=== PATIENT | male | born 1950 | race Caucasian/White ===

== ENCOUNTER → 2017-11-30 09:09 | Outpatient (CLI) | payer MEDICARE, SELFPAY ==
[2017-11-30 11:48] LABS: Prostate Specific Antigen < 0.064 ng/mL (0.10-4.00)
== END ==
PROVIDERS: PCP Internal Medicine; Visit Provider Urology
DX: Z85.46 Personal history of malignant neoplasm of prostate (principal)
CPT/HCPCS: 36415; 84153

== ENCOUNTER → 2018-01-04 07:35 | Outpatient (CLI) | payer MEDICARE, SELFPAY ==
[2018-01-04 10:04] LABS: Alanine Aminotransferase 36 IU/L (21-72); Albumin 4.4 g/dL (3.5-5.0); Albumin Globulin Ratio 1.5 (1.0-2.8); Alkaline Phosphatase 64 U/L (38-126); Aspartate Aminotransferase 28 IU/L (17-59); BUN Creatinine Ratio 23.8 (6-22); Bilirubin Total 0.8 mg/dL (0.2-1.3); Blood Urea Nitrogen 19 mg/dL (9-20); Calcium 9.7 mg/dL (8.4-10.2); Carbon Dioxide 29 mmol/L (22-32); Chloride 101 mmol/L (98-107); Cholesterol 158 mg/dL (140-199); Estimated Glomerular Filt Rate > 60.0 mL/min (>60); Globulin 2.9 g/dL (1.7-4.1); Glucose 88 mg/dL (80-110); HDL Cholesterol 101 mg/dL (40-60); HEMOLYSIS < 15 (0-50); LDL Cholesterol Calculated 41 mg/dL (<100); Potassium 4.2 mmol/L (3.4-5.1); Sodium 142 mmol/L (137-145); Total Protein 7.3 g/dL (6.3-8.2); Triglycerides 79 mg/dL (35-150)
== END ==
PROVIDERS: Family Provider Internal Medicine; PCP Internal Medicine; Visit Provider Internal Medicine
DX: G25.0 Essential tremor (principal); J30.9 Allergic rhinitis, unspecified; G47.33 Obstructive sleep apnea (adult) (pediatric)
CPT/HCPCS: 36415; 80053; 80061

== ENCOUNTER → 2018-06-07 09:09 | Outpatient (CLI) | payer MEDICARE, SELFPAY ==
[2018-06-07 11:04] LABS: Prostate Specific Antigen < 0.064 ng/mL (0.10-4.00)
== END ==
PROVIDERS: Family Provider Internal Medicine; PCP Internal Medicine; Visit Provider Urology
DX: Z85.46 Personal history of malignant neoplasm of prostate (principal)
CPT/HCPCS: 36415; 84153

== ENCOUNTER → 2018-09-16 08:58 | Outpatient (CLI) | payer MEDICARE, SELFPAY ==
[2018-09-16 09:04] LABS: Bacteria Urine None Seen
[2018-09-16 10:15] LABS: Appearance Urine UA CLEAR; Bilirubin Urine UA NEGATIVE (NEGATIVE); Color Urine UA YELLOW; Glucose Urine UA NEGATIVE (Negative); Ketones Urine UA 2+ (NEGATIVE); Leukocyte Esterase Urine UA NEGATIVE (NEGATIVE); Nitrite Urine UA NEGATIVE (Negative); Occult Blood Urine UA 1+ (Negative); Protein Urine UA NEGATIVE (Negative); Urobilinogen Urine UA 0.2 E.U./dL (0.2)
[2018-09-16 10:44] LABS: BUN Creatinine Ratio 25.7 (6-22); Blood Urea Nitrogen 18 mg/dL (9-20); Calcium 9.8 mg/dL (8.4-10.2); Carbon Dioxide 28 mmol/L (22-32); Chloride 100 mmol/L (98-107); Estimated Glomerular Filt Rate > 60.0 mL/min (>60); Glucose 87 mg/dL (80-110); HEMOLYSIS < 15 (0-50); Potassium 5.2 mmol/L (3.4-5.1); Sodium 140 mmol/L (137-145)
[2018-09-16 10:55] LABS: Culture Indicated Urine Specimen Cultured; RBC Urine 5-10/HPF (0-5/HPF); WBC Urine 5-10/HPF (0-5/HPF)
== END ==
PROVIDERS: Family Provider Internal Medicine; PCP Internal Medicine; Visit Provider Urology
DX: R31.0 Gross hematuria (principal)
CPT/HCPCS: 36415; 80048; 81001; 87086

== ENCOUNTER → 2018-09-22 09:26 | Outpatient (CLI) | payer MEDICARE, SELFPAY ==
--- NOTE | 2018-09-22 | DI.CT.S_ITS ---
PROCEDURE: CT ABDOMEN PELVIS WO/W CON INDICATIONS: GROSS HEMATURIA TECHNIQUE: After the administration of oral contrast, 5 mm thick sections acquired from the diaphragms to the iliac crests. After the administration of intravenous contrast, 5 mm thick sections acquired from the diaphragms to the symphysis. 5 mm thick coronal and sagittal reformats were acquired. For radiation dose reduction, the following was used: automated exposure control, adjustment of mA and/or kV according to patient size. COMPARISON: None. FINDINGS: Image quality: Excellent. ABDOMEN: Lung bases: Lung bases are clear. Heart size is normal. Solid organs: Liver is normal in size and enhancement. Gallbladder is contracted. Biliary system is non-dilated. Pancreas enhances normally. Spleen is normal in size and enhancement. Calcified splenic granulomata. The No adrenal nodules. There is no hydronephrosis or mass involving either kidney. There is a 7 mm nonobstructing left lower pole renal stone. No right renal stones. Ureters are normal caliber. No ureteral stones. Bladder has a smooth contour. No bladder wall thickening. Bowel and peritoneum: Stomach, small and large bowel loops are normal in caliber and wall thickness. No free fluid or air. Sigmoid diverticulosis without evidence of diverticulitis. Nodes and vessels: No retroperitoneal or mesenteric adenopathy by size criteria. Aorta and inferior vena are normal in caliber. Miscellaneous: No ventral hernias. PELVIS: Genitourinary: Bladder wall thickness is normal. Miscellaneous: No inguinal hernias or adenopathy. Bones: No suspicious bony lesions. No vertebral body compression fractures. IMPRESSION: 1. 7 mm nonobstructing left lower pole renal stone. 2. No renal masses. No hydronephrosis. No ureteral stones. 3. Chronic granulomatous disease. 4. Sigmoid diverticulosis. Dictated by: Frankie Torres M.D. on 09/22/2018 at 15:29 Approved by: Frankie Torres M.D. on 09/22/2018 at 15:35
[2018-09-22 09:37] LABS: Bacteria Urine None Seen
[2018-09-22 10:17] LABS: Appearance Urine UA CLEAR; Bilirubin Urine UA NEGATIVE (NEGATIVE); Color Urine UA YELLOW; Glucose Urine UA NEGATIVE (Negative); Ketones Urine UA 1+ (NEGATIVE); Leukocyte Esterase Urine UA NEGATIVE (NEGATIVE); Nitrite Urine UA NEGATIVE (Negative); Occult Blood Urine UA 2+ (Negative); Protein Urine UA NEGATIVE (Negative); Specific Gravity Urine UA 1.015 (1.000-1.035); Urobilinogen Urine UA 0.2 E.U./dL (0.2); pH Urine UA 7.5 (4.5-8.0)
[2018-09-22 10:22] LABS: BUN Creatinine Ratio 18.8 (6-22); Blood Urea Nitrogen 15 mg/dL (9-20); Calcium 9.2 mg/dL (8.4-10.2); Carbon Dioxide 29 mmol/L (22-32); Chloride 98 mmol/L (98-107); Estimated Glomerular Filt Rate > 60.0 mL/min (>60); Glucose 95 mg/dL (80-110); HEMOLYSIS < 15 (0-50); Potassium 4.4 mmol/L (3.4-5.1); Sodium 138 mmol/L (137-145)
[2018-09-22 10:25] LABS: Amorphous Sediment Urine 1+; Culture Indicated Urine Specimen Cultured; Mucus Urine 1+ (Negative); RBC Urine 30-100/HPF (0-5/HPF); Squamous Epithelial Cell Urine 0-1 /HPF; WBC Urine 1-5/HPF (0-5/HPF)
== END ==
PROVIDERS: Family Provider Internal Medicine; PCP Internal Medicine; Visit Provider Urology
DX: R31.0 Gross hematuria (principal); N20.0 Calculus of kidney; K57.30 Diverticulosis of large intestine without perforation or abscess without bleeding
CPT/HCPCS: 36415; 74178; 80048; 81001; 87086; Q9967

== ENCOUNTER → 2018-11-22 09:32 | Outpatient (CLI) | payer MEDICARE, SELFPAY ==
--- NOTE | 2018-11-22 | DI.RAD.S_ITS ---
PROCEDURE: XR ABDOMEN 1V INDICATIONS: Calculus of left kidney TECHNIQUE: One view of the abdomen acquired. COMPARISON: [facility], CT, CT ABDOMEN PELVIS WO/W CON, 09/22/2018, 14:06. FINDINGS: Surgical changes and devices: None. Bowel: Bowel gas pattern is normal. Soft tissues: No new suspicious abdominal calcifications, and the calculus involving the left kidney laterally can be seen by plain film imaging center approximately 2 cm above the iliac crest on the left. This has a craniocaudad length of 1 cm.. Visualized solid organ contours appear normal in size. Bones: No suspicious bony lesions. IMPRESSION: The lateral left renal collecting system calculus seen by CT scanning 09/22/18 remains in stable position measuring up to 1.0 cm craniocaudad. Dictated by: Aman Delgado M.D. on 11/22/2018 at 10:10 Approved by: Aman Delgado M.D. on 11/22/2018 at 10:12
== END ==
PROVIDERS: Family Provider Internal Medicine; PCP Internal Medicine; Visit Provider Urology
DX: N20.0 Calculus of kidney (principal)
CPT/HCPCS: 74018

== ENCOUNTER → 2019-02-22 09:20 | Outpatient (CLI) | payer MEDICARE, SELFPAY ==
[2019-02-22 10:28] LABS: Alanine Aminotransferase 22 IU/L (21-72); Albumin 4.4 g/dL (3.5-5.0); Albumin Globulin Ratio 1.6 (1.0-2.8); Alkaline Phosphatase 62 U/L (38-126); Aspartate Aminotransferase 24 IU/L (17-59); BUN Creatinine Ratio 18.8 (6-22); Bilirubin Total 1.1 mg/dL (0.2-1.3); Blood Urea Nitrogen 15 mg/dL (9-20); Calcium 9.8 mg/dL (8.4-10.2); Carbon Dioxide 28 mmol/L (22-32); Chloride 99 mmol/L (98-107); Cholesterol 155 mg/dL (140-199); Estimated Glomerular Filt Rate > 60.0 mL/min (>60); Globulin 2.8 g/dL (1.7-4.1); Glucose 83 mg/dL (80-110); HDL Cholesterol 88 mg/dL (40-60); HEMOLYSIS < 15 (0-50); LDL Cholesterol Calculated 55 mg/dL (<100); Potassium 4.3 mmol/L (3.4-5.1); Sodium 137 mmol/L (137-145); Total Protein 7.2 g/dL (6.3-8.2); Triglycerides 59 mg/dL (35-150)
[2019-02-22 11:08] LABS: Prostate Specific Antigen < 0.064 ng/mL (0.10-4.00)
== END ==
PROVIDERS: PCP Internal Medicine; Visit Provider Internal Medicine
DX: C61 Malignant neoplasm of prostate (principal); G25.0 Essential tremor; Z13.1 Encounter for screening for diabetes mellitus; Z13.6 Encounter for screening for cardiovascular disorders
CPT/HCPCS: 36415; 80053; 80061; 84153

== ENCOUNTER → 2020-01-14 13:54 | Outpatient (CLI) | payer MEDICARE, SELFPAY ==
[2020-01-15 07:58] LABS: COVID19 Sendout Not Detected (Not Detect)
== END ==
PROVIDERS: PCP Internal Medicine; Visit Provider Nurse Practitioner
DX: Z01.812 Encounter for preprocedural laboratory examination (principal)
CPT/HCPCS: 87635

== ENCOUNTER 2020-01-17 08:00 | Day surgery (SDC) | payer MEDICARE, SELFPAY ==
[2020-01-17] MEDS: PROPARACAINE 0.5% OPHTH SOL 2 DROPS EYE-OP (08:33)
[2020-01-17 08:35] VITALS: BMI 35.9
[2020-01-17] MEDS: CATARACT EYE COMPOUND (10 DROPS/SYRINGE) 3 DROPS EYE-OP (08:38)
[2020-01-17 08:45] VITALS: BP 172/92; PULSE 61; RESP 14; TEMP 36.5; O2SAT 99
--- NOTE | 2020-01-17 09:39 | PM.PREOP ---
Pre-operative Note Interval Note History & Physical reviewed/Exam performed by Physician: Yes Changes to H&P: No
--- NOTE | 2020-01-17 09:40 | P.OP_ITS ---
Operative Date/Time/Diagnoses Pre-op diagnosis: Nuclear Cataract Left eye Post-op diagnosis: same Procedure & Clinicians Same procedure as scheduled: Yes Surgeon: Shekhar Conroy Anesthesia Type: MAC +/- and Sedation Operative Notes Procedure in detail: Patient brought to the operating suite. Tetracaine drops placed in the left eye. Patient was prepped and draped in sterile manner. Wire lid speculum was placed in the eye. Betadine drops were placed on the eye. This was irrigated. Lidocaine jelly was placed on the eye. A paracentesis port was created with a side-port blade. 0.1 mL 1% preservative free lidocaine was injected into the anterior chamber. The anterior chamber was deepened with viscoelastic. 2.6 mm keratome was used to create a temporal clear corneal incision. Cystotome and Utrata forceps were used to create continuous tear capsulorrhexis. Balanced salt solution was used to hydro dissect the nucleus. The phacoemulsification handpiece was inserted and the nucleus was removed using the stop and chop technique. The irrigation aspiration handpiece was inserted and the remaining cortex was removed. Anterior chamber was deepened with viscoe lastic. An Casanova ZCB00 intraocular lens with a power of 19.5 was injected into the capsular bag. Irrigation aspiration handpiece was inserted and the remaining viscoelastic was removed. Incision was hydrated with balanced salt solution and found to be leak free with pressure with Weck-Madyson sponges. 0.1 mL Vigamox injected anterior chamber. 0.3 mL Kenalog 10 mg was injected subconjunctivally. Lid speculum was removed. The patient left the operating room in excellent condition. Complications: none Post-operative Condition: stable Disposition: same day surgery
[2020-01-17] MEDS: CHONDROIDTIN/SOD HYALURONATE 1.05 ML SYRINGE INTRAOCULA (09:59)
[2020-01-17] MEDS: MOXIFLOXACIN INJ 5 MG/ML VIAL EYE-OP (09:59)
[2020-01-17] MEDS: TRIAMCINOLONE 50 MG/5 ML VIAL INJ (09:59)
[2020-01-17] MEDS: PHENYLEPHRINE/LIDOCAINE VIAL (OR) 0.2 ML EYE-OP (09:59)
[2020-01-17] MEDS: TETRACAINE 0.5% OPHTH DROPS 4 ML 2 DROPS EYE-OP (10:00)
[2020-01-17] MEDS: BALANCED SALT IRRIG SOLN NO.2 500 ML, EPINEPHrine 1 MG IRR (10:00)
[2020-01-17] MEDS: LIDOCAINE JELLY 2% 5 ML 1 APPLIC TOP (10:00)
[2020-01-17 10:09] VITALS: BP 172/93; PULSE 60; RESP 20; TEMP 36.6; O2SAT 98
== END 2020-01-17 10:22 | disposition home or self-care (01) ==
PROVIDERS: PCP Internal Medicine; Referring Provider Ophthalmology; Visit Provider Ophthalmology
PROC: (CPT 66984; principal; 2020-01-17 09:45)
DX: H25.12 Age-related nuclear cataract, left eye (principal)
CPT/HCPCS: 66984; J0171; J2250; J3010; J3301

== ENCOUNTER → 2020-01-28 15:56 | Outpatient (CLI) | payer MEDICARE, SELFPAY ==
[2020-01-29 23:43] LABS: COVID19 Sendout Not Detected (Not Detect)
== END ==
PROVIDERS: PCP Internal Medicine; Visit Provider Physician Assistant
DX: Z01.812 Encounter for preprocedural laboratory examination (principal)
CPT/HCPCS: 87635

== ENCOUNTER 2020-01-31 06:29 | Day surgery (SDC) | payer MEDICARE, SELFPAY ==
[2020-01-31] MEDS: PROPARACAINE 0.5% OPHTH SOL 2 DROPS EYE-OP (07:12)
[2020-01-31] MEDS: CATARACT EYE COMPOUND (10 DROPS/SYRINGE) 3 DROPS EYE-OP (07:12)
[2020-01-31 07:30] VITALS: BP 173/88; PULSE 66; RESP 16; TEMP 37.1; O2SAT 98; BMI 37.0
--- NOTE | 2020-01-31 07:33 | PM.PREOP ---
Pre-operative Note Interval Note History & Physical reviewed/Exam performed by Physician: Yes Changes to H&P: No
--- NOTE | 2020-01-31 07:33 | PM.OP.1 ---
Operative Date/Time/Diagnoses Pre-op diagnosis: Nuclear cataract right eye Procedure & Clinicians Procedure: Cataract Surgery Same procedure as scheduled: Yes Surgeon: Shekhar Conroy Anesthesia Type: MAC +/- and Sedation Operative Notes Procedure in detail: Patient brought to the operating suite. Tetracaine drops placed in the right eye. Patient was prepped and draped in sterile manner. Wire lid speculum was placed in the eye. Betadine drops were placed on the eye. This was irrigated. Lidocaine jelly was placed on the eye. A paracentesis port was created with a side-port blade. 0.1 mL 1% preservative free lidocaine was injected into the anterior chamber. The anterior chamber was deepened with viscoelastic. 2.6 mm keratome was used to create a temporal clear corneal incision. Cystotome and Utrata forceps were used to create continuous tear capsulorrhexis. Balanced salt solution was used to hydro dissect the nucleus. The phacoemulsification handpiece was inserted and the nucleus was removed using the stop and chop technique. The irrigation aspiration handpiece was inserted and the remaining cortex was removed. Anterior chamber was deepened with viscoelastic. An Casanova ZCB00 intraocular lens with a power of 18.0 was injected into the capsular bag. Irrigation aspiration handpiece was inserted and the remaining viscoelastic was removed. Incision was hydrated with balanced salt solution and found to be leak free with pressure with Weck-Madyson sponges. 0.1 mL Vigamox injected anterior chamber. 0.3 mL Kenalog 10 mg was injected subconjunctivally. Lid speculum was removed. The patient left the operating room in excellent condition. Complications: none Post-operative Condition: stable Disposition: same day surgery
[2020-01-31] MEDS: CHONDROIDTIN/SOD HYALURONATE 1.05 ML SYRINGE INTRAOCULA (08:03)
[2020-01-31] MEDS: LIDOCAINE JELLY 2% 5 ML 1 APPLIC TOP (08:04)
[2020-01-31] MEDS: MOXIFLOXACIN INJ 5 MG/ML VIAL EYE-OP (08:04)
[2020-01-31] MEDS: PHENYLEPHRINE/LIDOCAINE VIAL (OR) 0.2 ML EYE-OP (08:04)
[2020-01-31] MEDS: TETRACAINE 0.5% OPHTH DROPS 4 ML 2 DROPS EYE-OP (08:05)
[2020-01-31] MEDS: BALANCED SALT IRRIG SOLN NO.2 500 ML, EPINEPHrine 1 MG IRR (08:05)
[2020-01-31] MEDS: TRIAMCINOLONE 50 MG/5 ML VIAL INJ (08:05)
[2020-01-31 08:10] VITALS: BP 182/93; PULSE 66; RESP 16; TEMP 36.6; O2SAT 97
== END 2020-01-31 08:20 | disposition home or self-care (01) ==
PROVIDERS: PCP Internal Medicine; Referring Provider Internal Medicine; Visit Provider Ophthalmology
PROC: (CPT 66984; principal; 2020-01-31 07:45)
DX: H25.11 Age-related nuclear cataract, right eye (principal); R25.1 Tremor, unspecified
CPT/HCPCS: 66984; J0171; J2250; J3010; J3301

== ENCOUNTER → 2020-07-05 09:46 | Outpatient (CLI) | payer MEDICARE, SELFPAY ==
[2020-07-05 10:45] LABS: Prostate Specific Antigen < 0.064 ng/mL (0.10-4.00)
== END ==
PROVIDERS: PCP Internal Medicine; Referring Provider Specialist; Visit Provider Specialist
DX: R97.20 Elevated prostate specific antigen [PSA] (principal); C61 Malignant neoplasm of prostate; N39.3 Stress incontinence (female) (male); N52.31 Erectile dysfunction following radical prostatectomy
CPT/HCPCS: 36415; 81002; 84153; 99214

== ENCOUNTER → 2020-09-14 07:03 | Outpatient (CLI) | payer MEDICARE, SELFPAY ==
[2020-09-14 09:00] LABS: Alanine Aminotransferase 16 IU/L (<50); Albumin 4.1 g/dL (3.5-5.0); Albumin Globulin Ratio 1.4 (1.0-2.8); Alkaline Phosphatase 57 U/L (38-126); Aspartate Aminotransferase 25 IU/L (17-59); Bilirubin Total 0.7 mg/dL (0.2-1.3); Blood Urea Nitrogen 21 mg/dL (9-20); Calcium 9.3 mg/dL (8.4-10.2); Carbon Dioxide 29 mmol/L (22-32); Chloride 104 mmol/L (98-107); Cholesterol 162 mg/dL (140-199); Estimated Glomerular Filt Rate > 60.0 mL/min (>60); Globulin 2.9 g/dL (1.7-4.1); Glucose 98 mg/dL (80-110); HDL Cholesterol 83 mg/dL (40-60); HEMOLYSIS < 15 (0-50); LDL Cholesterol Calculated 67 mg/dL (<100); Sodium 139 mmol/L (137-145); Triglycerides 58 mg/dL (35-150)
[2020-09-14 09:30] LABS: TSH w/ Reflex to FT4 5.59 uIU/mL (0.47-4.68)
[2020-09-14 23:11] LABS: Free T4, Direct Thyroxine 0.98 ng/dL (0.78-2.19)
== END ==
PROVIDERS: PCP Internal Medicine; Referring Provider Internal Medicine; Visit Provider Internal Medicine
DX: G25.0 Essential tremor (principal); I10 Essential (primary) hypertension; Z13.220 Encounter for screening for lipoid disorders
CPT/HCPCS: 36415; 80053; 80061; 84439; 84443

== ENCOUNTER → 2021-02-07 09:24 | Outpatient (CLI) | payer MEDICARE, SELFPAY ==
[2021-02-07 11:56] LABS: COVID19 -Nasal RAPID Negative (Negative)
== END ==
PROVIDERS: PCP Internal Medicine; Visit Provider Specialist
DX: Z20.822 Contact with and (suspected) exposure to COVID-19 (principal)
CPT/HCPCS: 87635; C9803

== ENCOUNTER 2021-02-08 06:29 | Day surgery (SDC) | payer MEDICARE, SELFPAY ==
--- NOTE | 2021-02-08 | PATH_ITS ---
[facility] Accession Number: [id number] . 01 Material submitted: . PART A: colon - ASCENDING COLON PART B: body - 100 CM PART C: body - 85 CM . 01 Clinical history: . SDC . 02 Diagnosis: A. Ascending Colon: Portions of tubular adenoma x2. Superficial portion of colorectal mucosa x1 with a benign lymphoid aggregate. Superficial portion of colorectal mucosa x1 with no significant histomorphologic abnormality. . B. 100 cm: Portions of tubular adenoma x 6. Superficial portion of colorectal mucosa x1 with multiple benign lymphoid aggregates. Superficial portions of colorectal mucosa x2 with focal hyperplastic mucosal change. . C. 85 cm: Tubular adenoma. MRV 02/12/2021 1737 Local . 02 Electronically signed: . Lucy Erwin MD, Pathologist NPI- [id number] . 01 Gross description: . Part A: ASCENDING COLON: Received in formalin are 4 fragment(s) of raman, soft tissue measuring 0.5 x 0.3 x 0.3 cm to 0.2 x 0.1 x 0.1 cm submitted entirely in 1 cassette(s) Part B: 100 CM: Received in formalin are multiple fragment(s) of raman, soft tissue measuring 1.3 x 0.4 x 0.2 cm in aggregate submitted entirely in 1 cassette(s) Part C: 85 CM: Received in formalin are 4 fragment(s) of raman, soft tissue measuring 0.6 x 0.4 x 0.3 cm to 0.1 x 0.1 x 0.1 cm submitted entirely in 1 cassette(s) /TARA 02/09/2021 0707 Local . 02 Pathologist provided ICD-10: Z12.11, K63.5 . 02 CPT . 975439, [id number], [id number] Performed at: 01 [facility] [address] [place] [address], [place], [place] [id number] MD Gorge Tomlinson MD Phone: [phone] Performed at: 02 [facility] [address] [place], [place] [id number] MD Gela Ryan MD Phone: [phone]
[2021-02-08] MEDS: LACTATED RINGERS 1,000 ML 200 ML IV (07:16)
[2021-02-08 07:17] VITALS: BP 165/81; PULSE 59; RESP 16; TEMP 36.6; O2SAT 98; BMI 34.1
--- NOTE | 2021-02-08 07:37 | PM.HP.1 ---
History of Present Illness History of Present Illness Chief complaint: [facility] [place] Narrative: The patient is a gentleman who is here for screening colonoscopy. His last exam was about 10 or 11 years ago. No family history. Patient History Medical History Allergic rhinitis (06/24/12) Ankle pain (~1972) Diverticular disease Elevated PSA Erectile dysfunction after radical prostatectomy Essential hypertension Essential tremor (~1989) H/O renal calculi History of basal cell cancer (~2009) Malignant neoplasm of prostate (04/29/16) Obstructive sleep apnea syndrome (~2007) RIANA (stress urinary incontinence), male Surgical History Anesthesia Ankle fracture (~1971) H/O prostate biopsy History of open hand wound History of prostatectomy History of torn meniscus of left knee Status post radical cystoprostatectomy (~09/2015) Family & Social History Family History Brother Family history of prostate cancer Father Family history of prostate cancer Mental health problem Tremor Mother Stroke Tremor Sister Age: 77 Breast cancer Tremor Grandfather Dementia Family/Other Cancer Social History: household members spouse Tobacco & Substance use: Smoking Status Never smoker alcohol intake current alcohol intake frequency 3 or more drinks per day Substance Use Type does not use Meds Home Medications and Allergies Home Medications Medication Instructions Recorded Confirmed Type aspirin 81 mg tablet,delayed 81 mg PO QDAY #0 06/15/12 02/08/21 History release ascorbic acid (vitamin C) 500 mg 500 mg PO QDAY #0 06/24/12 02/08/21 History tablet fexofenadine 180 mg tablet 180 mg PO DAILY 01/08/18 02/08/21 History (Roberta Allergy) glucosamine HCl 1,500 mg tablet 1,500 mg PO DAILY 01/08/18 02/08/21 History lutein 20 mg capsule 20 - 100 mg PO DAILY 01/08/18 02/08/21 History sildenafil 50 mg tablet (Viagra) 50 mg PO DAILY PRN 01/08/18 02/08/21 History cholecalciferol (vitamin D3) 50 50 mcg PO DAILY 07/05/20 02/08/21 History mcg (2,000 unit) capsule multivitamin 1 tab PO DAILY 07/05/20 02/08/21 History vitamin E (dl, acetate) 400 unit 400 unit PO DAILY 07/05/20 02/08/21 History capsule lisinopril 20 mg tablet 20 mg PO DAILY #90 tab 08/17/20 02/08/21 Rx fluticasone propionate 50 2 spray INTRANASAL BEDTIME #16 gram 08/28/20 02/08/21 Rx mcg/actuation nasal spray,suspension tetrahydrozoline 0.05 % eye drops 1 drp EYE-BOTH DAILY ml 09/21/20 02/08/21 History sodium,potassium,mag sulfates 17.5 177 ml PO DAILY #354 ml 01/02/21 02/08/21 Rx gram-3.13 gram-1.6 gram oral soln Respironics DreamStation CPAP #1 ea 01/16/21 01/16/21 History Allergies Allergy/AdvReac Type Severity Reaction Status Date / Time No Known Drug Allergies Allergy Verified 02/08/21 07:09 Review of Systems Review of Systems Narrative: Uses a CPAP machine otherwise a 12 point review of systems is negative except for some urinary difficulties Exam Vital Signs (past 8 hours): - 02/08/21 07:17 Temperature 97.8 F Pulse Rate 59 L Respiratory Rate 16 Blood Pressure 165/81 H Pulse Oximetry 98 Oxygen Delivery Method Room Air Narrative Exam Narrative: Pleasant cooperative patient no apparent distress. Lungs are clear to auscultation. No rales or rhonchi. Heart regular rate and rhythm no murmur gallop. Abdomen is soft nontender without mass. No obvious hernias. Patient is alert and oriented x3. Assessment & Plan Assessment and plan (1) Screening for colon cancer: Status: Acute Assessment & Plan narrative: I have discussed the procedure and the rationale with the patient including risks of bleeding, perforation which would necessitate a major operation, failure to find remove all lesions and the potential to tattoo. They appeared to understand and wished to proceed.
--- NOTE | 2021-02-08 07:39 | PM.PREOP ---
Pre-operative Note COVID-19 COVID-19 status: Negative Result date/Date tested (Pos, Neg/Pending): 02/07/21 Interval Note History & Physical reviewed/Exam performed by Physician: Yes Changes to H&P: No ASA Class (for procedural sedation): III
[2021-02-08] MEDS: MIDAZOLAM 5 MG/5 ML VIAL IV (08:00)
[2021-02-08] MEDS: fentaNYL 250 MCG/5 ML INJ IV (08:00)
--- NOTE | 2021-02-08 08:21 | PM.OP.ENDO ---
Operative Date/Time/Diagnoses Date of procedure: 02/08/21 Time of procedure: 08:21 Pre-op diagnosis: Screening exam. Last exam about 11 years ago. Post-op diagnosis: same (Multiple polyps. Manzo colonic diverticulosis.) Procedure & Clinicians Study performed: Colonoscopy with cold biopsy and hot snare polypectomy. Indications: Screening for colon cancer Surgeon: Brian Brooks Procedure Notes SCOAP/Timeout: Performed Procedure in detail: The patient was placed in the left lateral decubitus position and underwent IV sedation directed by the surgeon consisting of fentanyl and Versed. Digital exam was remarkable for an absent prostate. Also felt as though there were internal hemorrhoids but no thrombosis. There were no palpable masses. The scope was inserted and advanced through the rectum into the sigmoid, descending, transverse, and ascending colon. Diverticuli were seen throughout the colon.. The cecum was reached identified by the ileocecal valve and the appendiceal opening. The scope was gradually brought out. Polyps were found at the ascending colon, 100 cm from the anal verge, and 85 cm from the anal verge. The lesion at the ascending colon and at 100 cm were removed with cold biopsy forceps. The lesion at 85 cm was removed with a hot snare and a small polyp adjacent to it was cauterized.. The scope ultimately was retroflexed in the rectum. The appearance was remarkable for internal hemorrhoids without ulceration.. The scope was removed and the patient tolerated the procedure well. Scope withdrawal time: 9 min (18 total) Sedation minutes: 31 Findings: diverticulosis and polyp Specimen(s): other (Polyps) Complications: none Post-procedure Recommendations: Colonscopy in 5 years Follow up: as needed Disposition: PACU
[2021-02-08 08:27] VITALS: BP 153/79; PULSE 59; RESP 16; TEMP 36.5
[2021-02-08 08:32] VITALS: BP 138/76; PULSE 56; RESP 16
[2021-02-08 08:37] VITALS: BP 132/76; PULSE 54; RESP 16; O2SAT 95
[2021-02-08 08:40] VITALS: BP 138/76; PULSE 59; RESP 16; TEMP 36.2; O2SAT 96
[2021-02-08 08:48] VITALS: BP 130/70; PULSE 60; RESP 16; TEMP 36.4; O2SAT 96
== END 2021-02-08 09:01 | disposition home or self-care (01) ==
PROVIDERS: PCP Internal Medicine; Referring Provider Specialist; Visit Provider Specialist
PROC: 0DJD8ZZ Inspection of Lower Intestinal Tract, Via Natural or Artificial Opening Endoscopic (ICD-10-PCS; CPT 45378; principal; 2021-02-08 07:45)
DX: Z12.11 Encounter for screening for malignant neoplasm of colon (principal); I10 Essential (primary) hypertension; G47.33 Obstructive sleep apnea (adult) (pediatric); K57.30 Diverticulosis of large intestine without perforation or abscess without bleeding; D12.2 Benign neoplasm of ascending colon; D12.6 Benign neoplasm of colon, unspecified
CPT/HCPCS: 45385; 45380; 99152; 99153; J2250; J3010

== ENCOUNTER → 2021-07-24 11:58 | Outpatient (CLI) | payer MEDICARE, SELFPAY ==
[2021-07-24 14:25] LABS: Prostate Specific Antigen < 0.064 ng/mL (0.10-4.00)
== END ==
PROVIDERS: PCP Internal Medicine; Referring Provider Specialist; Visit Provider Specialist
DX: R97.20 Elevated prostate specific antigen [PSA] (principal)
CPT/HCPCS: 36415; 84153

== ENCOUNTER → 2021-12-12 09:45 | Outpatient (CLI) | payer MEDICARE, SELFPAY ==
[2021-12-12 11:38] LABS: Alanine Aminotransferase 15 IU/L (<50); Albumin 4.4 g/dL (3.5-5.0); Albumin Globulin Ratio 1.6 (1.0-2.8); Alkaline Phosphatase 46 U/L (38-126); Aspartate Aminotransferase 24 IU/L (17-59); BUN Creatinine Ratio 22.7 (6-22); Bilirubin Total 0.9 mg/dL (0.2-1.3); Blood Urea Nitrogen 17 mg/dL (9-20); Calcium 9.3 mg/dL (8.4-10.2); Carbon Dioxide 29 mmol/L (22-32); Chloride 103 mmol/L (98-107); Estimated Glomerular Filt Rate > 60 mL/min (>60); Globulin 2.7 g/dL (1.7-4.1); Glucose 90 mg/dL (80-110); HEMOLYSIS < 15 (0-50); Potassium 4.5 mmol/L (3.4-5.1); Sodium 137 mmol/L (137-145); Total Protein 7.1 g/dL (6.3-8.2)
== END ==
PROVIDERS: PCP Internal Medicine; Referring Provider Internal Medicine; Visit Provider Internal Medicine
DX: I10 Essential (primary) hypertension (principal)
CPT/HCPCS: 36415; 80053

== ENCOUNTER → 2022-09-29 11:26 | Outpatient (CLI) | payer MEDICARE, SELFPAY ==
[2022-09-29 13:28] LABS: BUN Creatinine Ratio 22.9 (6-22); Blood Urea Nitrogen 16 mg/dL (9-20); Calcium 8.9 mg/dL (8.4-10.2); Carbon Dioxide 30 mmol/L (22-32); Chloride 100 mmol/L (98-107); Estimated Glomerular Filt Rate > 60 mL/min (>60); Glucose 84 mg/dL (80-110); HEMOLYSIS < 15 (0-50); Potassium 4.2 mmol/L (3.4-5.1); Sodium 137 mmol/L (137-145)
[2022-09-29 14:01] LABS: Prostate Specific Antigen < 0.064 ng/mL (0.10-4.00)
== END ==
PROVIDERS: PCP Internal Medicine; Referring Provider Internal Medicine; Visit Provider Internal Medicine
DX: C61 Malignant neoplasm of prostate (principal); I10 Essential (primary) hypertension
CPT/HCPCS: 36415; 80048; 84153

== ENCOUNTER → 2022-11-12 08:44 | Outpatient (CLI) | payer MEDICARE, SELFPAY ==
--- NOTE | 2022-11-12 08:46 | DI.RAD.S_ITS ---
PROCEDURE: XR CHEST 2V INDICATIONS: cough TECHNIQUE: 2 views of the chest were acquired. COMPARISON: [facility], CHEST 2 VIEW, 12/01/2016, 14:37. [facility], CHEST 1 VIEW, 10/14/2007, 12:51. FINDINGS: Surgical changes and devices: None. Lungs and pleura: Lungs are clear. No pleural effusions or pneumothorax. Mediastinum: Mediastinal contours are normal. Heart size is normal. Bones and chest wall: No suspicious bony abnormalities. Soft tissues appear unremarkable. IMPRESSION: No acute cardiopulmonary process. Dictated by: Berto Small M.D. on 11/12/2022 at 11:52 Approved by: Berto Small M.D. on 11/12/2022 at 11:52
== END ==
PROVIDERS: PCP Internal Medicine; Referring Provider Internal Medicine; Visit Provider Internal Medicine
DX: R05.9 Cough, unspecified (principal)
CPT/HCPCS: 71046

== ENCOUNTER → 2024-02-18 08:06 | Outpatient (CLI) | payer MEDICARE, OTHER, SELFPAY ==
[2024-02-18 09:03] LABS: Alanine Aminotransferase 19 IU/L (<50); Albumin 4.4 g/dL (3.5-5.0); Albumin Globulin Ratio 1.5 (1.0-2.8); Alkaline Phosphatase 57 U/L (38-126); Aspartate Aminotransferase 23 IU/L (17-59); BUN Creatinine Ratio 18.7 (6-22); Bilirubin Total 0.8 mg/dL (0.2-1.3); Blood Urea Nitrogen 14 mg/dL (9-20); Calcium 9.1 mg/dL (8.4-10.2); Carbon Dioxide 28 mmol/L (22-32); Chloride 105 mmol/L (98-107); Cholesterol 160 mg/dL (140-199); Estimated Glomerular Filt Rate > 60 mL/min (>60); Globulin 2.9 g/dL (1.7-4.1); Glucose 100 mg/dL (80-110); HDL Cholesterol 82 mg/dL (40-60); HEMOLYSIS < 15 (0-50); LDL Cholesterol Calculated 62 mg/dL (<100); Potassium 4.3 mmol/L (3.4-5.1); Sodium 139 mmol/L (137-145); Total Protein 7.3 g/dL (6.3-8.2); Triglycerides 80 mg/dL (35-150)
[2024-02-19 07:10] LABS: PSA Ultrasensitive <0.006 ng/mL (0.000-4.000)
== END ==
PROVIDERS: PCP Internal Medicine; Referring Provider Internal Medicine; Visit Provider Internal Medicine
DX: I10 Essential (primary) hypertension (principal); C61 Malignant neoplasm of prostate; G25.0 Essential tremor
CPT/HCPCS: 36415; 80053; 80061; 84153; 84443

== ENCOUNTER → 2024-03-08 08:13 | Outpatient (CLI) | payer MEDICARE, OTHER, SELFPAY | PROVIDERS: PCP Internal Medicine; Referring Provider Physician Assistant Medical; Visit Provider Physician Assistant Medical | DX: S80.869A Insect bite (nonvenomous), unspecified lower leg, initial encounter (principal); W57.XXXA Bitten or stung by nonvenomous insect and other nonvenomous arthropods, initial encounter | CPT/HCPCS: 87070; 87205 ==

== ENCOUNTER 2024-03-10 08:22 | Emergency (ER) | payer MEDICARE, OTHER, SELFPAY ==
[2024-03-10 08:25] VITALS: BP 155/84; PULSE 97; RESP 16; O2SAT 99; BMI 33.3
--- NOTE | 2024-03-10 08:35 | ED.SKABFB ---
HPI - Skin/Abscess/Foreign Bdy General Chief complaint: Skin/Abscess/Foreign Body Stated complaint: bee sting getting worse Time Seen by Provider: 03/10/24 08:25 History of Present Illness HPI narrative: Patient 73-year-old male history of hypertension presenting today with right leg redness. Reports that 4 days ago he got stung by a bee while he was standing in water. He was able to remove the stinger he was applying antibiotic ointment. He did not have any other hives or reaction no difficulty breathing. He was then seen at the walk-in clinic 2 days later and started on doxycycline. Apparently a wound culture was sent which actually does not show any growth. He is here today because he feels like it is worse. He has not had any fever chills no redness foot is still mildly swollen. Difficulty breathing. Related Data Home Medications Medication Instructions Recorded Confirmed ascorbic acid (vitamin C) 500 mg 500 mg PO QDAY ##0 06/24/12 03/08/24 tablet fexofenadine 180 mg tablet 180 mg PO DAILY 01/08/18 03/08/24 (Roberta Allergy) lutein 20 mg capsule 20 - 100 mg PO DAILY 01/08/18 03/08/24 cholecalciferol (vitamin D3) 50 50 mcg PO DAILY 07/05/20 03/08/24 mcg (2,000 unit) capsule multivitamin 1 tab PO DAILY 07/05/20 03/08/24 tetrahydrozoline 0.05 % eye drops 1 drp EYE-BOTH DAILY 09/21/20 03/08/24 Respironics DreamStation 2 09/17/21 03/08/24 glucosamine HCl 1,500 mg tablet 1,500 mg PO TID 02/09/24 03/08/24 Previous Rx's Medication Instructions Recorded lisinopril 20 mg tablet 20 mg PO DAILY #90 tabs 10/16/23 fluticasone propionate 50 2 spray intranasal BEDTIME #32 12/28/23 mcg/actuation nasal grams spray,suspension doxycycline hyclate 100 mg capsule 100 mg PO BID #14 caps 03/08/24 prednisone 20 mg tablet 20 mg PO DAILY #5 tabs 03/10/24 Allergies Allergy/AdvReac Type Severity Reaction Status Date / Time No Known Drug Allergies Allergy Verified 03/08/24 08:08 Patient History Medical History History of malignant neoplasm of prostate Obesity (BMI 30-39.9) 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 Essential hypertension Erectile dysfunction after radical prostatectomy RIANA (stress urinary incontinence), male H/O renal calculi Elevated PSA Diverticular disease Ankle pain (~1972) History of basal cell cancer (~2009) Malignant neoplasm of prostate (04/29/16) Allergic rhinitis (06/24/12) Essential tremor (~1989) Obstructive sleep apnea syndrome (~2007) Surgical History History of prostatectomy H/O prostate biopsy Anesthesia History of torn meniscus of left knee History of open hand wound Ankle fracture (~1971) Status post radical cystoprostatectomy (~09/2015) Family History Brother Family history of prostate cancer Father Family history of prostate cancer Mental health problem Tremor Mother Stroke Tremor Sister Age: 80 Breast cancer Tremor Grandfather Dementia Family/Other Cancer Social History marital status: household members: spouse occupational status: previously employed Smoking Status: Never smoker alcohol intake: current caffeine: Yes Smoking Status: Never smoker alcohol intake frequency: 3 or more drinks per day Substance Use Type: does not use Exam Initial Vital Signs Initial Vital Signs: GENERAL: Alert pleasant 73-year-old male CARDIOVASCULAR: peripheral pulses in tact, cap refill <2 sec RESPIRATORY: No respiratory distress, speaks in full sentences without difficulty EXTREMITIES: Normal range of motion, no clubbing or edema. Neurovascularly intact NEUROLOGICAL: Cranial nerves II through XII grossly intact. Normal gait and speech. SKIN: Right medial lower leg over the malleoli is some discoloration some very mild erythema some blanchable about 11 cm x 8 cm but very mild no fluctuation. No streaking non circumferential MDM - Skin/Abscess/Foreign Bdy MDM Narrative Medical decision making narrative: Patient well-appearing 73-year-old male presents today with ongoing erythema after bee sting. He is afebrile it is very mildly discolored slightly red no streaking. He is already taking doxycycline wound culture is negative. He has only really had 4 doses of doxycycline. At this time I recommend he continue doxycycline will add prednisone. Given him strict return precautions. Overall appears well nontoxic not septic Discharge Plan Departure Patient Disposition: Home Clinical Impression: Cellulitis, Bee sting reaction Instructions: Insect Bites and Stings Activity Restrictions/Additional Instructions: *You have been diagnosed with bee sting mild infection *What to do: At this time keep taking your antibiotic. I think it will start working. Elevate and ice as often as possible help with the swelling. *Continue to take medications as directed Prednisone 20 mg once a day for 5 days *Follow up with your primary care provider in 2-3 days or call [phone] *Return to ER if you should have increasing redness streaking fever significant pain or any new, worsening or concerning symptoms Prescriptions: New prednisone 20 mg tablet 20 mg PO DAILY Qty: 5 0RF No Action doxycycline hyclate 100 mg capsule 100 mg PO BID Qty: 14 0RF ascorbic acid (vitamin C) 500 MG tablet 500 mg PO QDAY Qty: 0 lisinopril 20 mg tablet 20 mg PO DAILY Qty: 90 3RF fluticasone propionate 50 mcg/actuation spray,suspension 2 spray Intranasal BEDTIME Qty: 32 3RF fexofenadine [Roberta Allergy] 180 mg tablet 180 mg PO DAILY lutein 20 mg capsule 20 - 100 mg PO DAILY glucosamine HCl 1,500 mg tablet 1,500 mg PO TID tetrahydrozoline 0.05 % drops 1 drp EYE-BOTH DAILY (DME) Respironics DreamStation 2 See Rx Instructions .Route .MEDSUPPLY Rx Instructions: CPAP Min: 8 Max: 12 DME: [employer] multivitamin Tablet 1 tab PO DAILY cholecalciferol (vitamin D3) 50 mcg (2,000 unit) capsule 50 mcg PO DAILY Referrals: Atif Rodgers MD [Primary Care Provider] - Stand Alone Forms: Patient Portal/API
== END 2024-03-10 09:00 | disposition home or self-care (01) ==
PROVIDERS: Emergency Provider Emergency Medicine; PCP Internal Medicine
DX: L03.115 Cellulitis of right lower limb (principal); T63.441A Toxic effect of venom of bees, accidental (unintentional), initial encounter
CPT/HCPCS: 99281

== ENCOUNTER → 2025-02-09 11:26 | Outpatient (CLI) | payer MEDICARE, OTHER, SELFPAY ==
[2025-02-09 12:27] LABS: Alanine Aminotransferase 17 IU/L (<50); Albumin 4.3 g/dL (3.5-5.0); Albumin Globulin Ratio 1.7 (1.0-2.8); Alkaline Phosphatase 55 U/L (38-126); Blood Urea Nitrogen 20 mg/dL (9-20); Calcium 9.7 mg/dL (8.4-10.2); Carbon Dioxide 28 mmol/L (22-32); Chloride 105 mmol/L (98-107); Estimated Glomerular Filt Rate > 60 mL/min (>60); Globulin 2.6 g/dL (1.7-4.1); Glucose 94 mg/dL (70-99); HEMOLYSIS < 15 (0-50); Potassium 4.4 mmol/L (3.4-5.1); Sodium 140 mmol/L (137-145); Total Protein 6.9 g/dL (6.3-8.2)
== END ==
PROVIDERS: PCP Internal Medicine; Referring Provider Internal Medicine; Visit Provider Internal Medicine
DX: C61 Malignant neoplasm of prostate (principal); I10 Essential (primary) hypertension; Z79.899 Other long term (current) drug therapy
CPT/HCPCS: 36415; 80053; 84153